=== PATIENT | male | born 1935 | race Caucasian/White ===

== ENCOUNTER → 2019-08-23 | Outpatient (CLI) | payer MEDICARE, MEDICAID ==
[~2019-08-23] MED LIST: AMINOPHYLLIN200 MG PO; ASPI-COR81 M1 PO; LOPRESSOR25 MG PO; MOBIC7.5 MG PO; PLAVIX75 M1 PO; PRINIVIL10 MG PO; PROAIR HFA8.5 GM INH; RESTORIL15 MG PO; ZITHROMAX250 MG PO; ZOCOR40 MG PO
[2019-08-23 07:52] LABS: BASO # 0.1 10*3/uL (0.0-0.1); BASO % 0.7 % (0.0-1.0); EOS # 0.2 10*3/uL (0.0-0.4); EOS % 3.1 % (1.0-4.0); HEMATOCRIT 50.1 % (42.0-52.0); HEMOGLOBIN 15.8 g/dl (14.0-18.0); LYMPH # 2.2 10*3/uL (1.3-4.4); LYMPH % 30.5 % (27.0-41.0); MEAN CELL VOLUME 100.2 fl (80.0-94.0); MEAN CORPUSCULAR HGB 31.6 pg (27.0-31.0); MEAN CORPUSCULAR HGB CONC 31.5 g/dl (33.0-37.0); MEAN PLATELET VOLUME 9.8 fl (9.6-12.3); MONO # 0.6 10*3/uL (0.1-1.0); MONO % 9.1 % (3.0-9.0); NEUT % 56.3 % (47.0-73.0); PLATELET COUNT AUTOMATED 205 10*3/uL (130-400); RED CELL DISTRI WIDTH 12.9 % (0-14.5)
== END | disposition home or self-care (01) ==
LOC: LAB 07:26
PROVIDERS: Orthopaedic Surgery
DX: M79.10 Myalgia, unspecified site (principal); E78.00 Pure hypercholesterolemia, unspecified

== ENCOUNTER → 2019-08-27 | Outpatient (CLI) | payer MEDICARE, MEDICAID | END | disposition home or self-care (01) | LOC: CT 11:22 → MRI 14:00 | DX: M47.892 Other spondylosis, cervical region (principal); I10 Essential (primary) hypertension ==

== ENCOUNTER → 2019-09-17 | Outpatient (CLI) | payer MEDICARE, MEDICAID ==
[2019-09-18 08:08] LABS: RHEUMATOID ARTHRITIS FACTOR <10.0 IU/mL (0.0-13.9)
[2019-09-18 09:09] LABS: HEPATITIS B SURFACE AG Negative (Negative); HEPATITIS C VIRUS ANTIBODY <0.1 s/co (0.0-0.9)
[2019-09-19 11:06] LABS: LUPUS DRVVT 38.5 sec (0.0-47.0); PTT-LA 31.1 sec (0.0-51.9)
[2019-09-19 12:08] LABS: LUPUS REFLEX INTERPRETATION Comment: (.)
[2019-09-19 17:10] LABS: CCP ANTIBODIES IGG/IGA 9 units (0-19)
[2019-09-20 12:07] LABS: ANTI-RNP ANTIBODIES 0.7 AI (0.0-0.9)
== END | disposition home or self-care (01) ==
LOC: LAB 11:16
PROVIDERS: Orthopaedic Surgery
DX: M54.2 Cervicalgia (principal)

== ENCOUNTER → 2021-11-14 | Outpatient (CLI) | payer MEDICARE, MEDICAID ==
[2021-11-14 10:25] LABS: BASO % 0.5 % (0.0-1.0); EOS # 0.1 10*3/uL (0.0-0.4); EOS % 1.6 % (1.0-4.0); HEMATOCRIT 49.1 % (42.0-52.0); LYMPH # 1.9 10*3/uL (1.3-4.4); MEAN CELL VOLUME 97.4 fl (80.0-94.0); MEAN CORPUSCULAR HGB 31.2 pg (27.0-31.0); MEAN PLATELET VOLUME 9.9 fl (9.6-12.3); MONO # 0.6 10*3/uL (0.1-1.0); MONO % 7.5 % (3.0-9.0); NEUT # 5.4 10*3/uL (2.3-7.9); NEUT % 67.2 % (47.0-73.0); PLATELET COUNT AUTOMATED 198 10*3/uL (130-400); RED BLOOD COUNT 5.04 10*6/uL (4.50-5.90); RED CELL DISTRI WIDTH 13.5 % (0-14.5)
[2021-11-14 10:31] LABS: BILIRUBIN Negative (Negative); BLOOD Negative (Negative); CLARITY Clear (Clear); COLOR Yellow (Yellow); GLUCOSE Negative (Negative); KETONE Negative (Negative); LEUKO ESTERASE 2+ (Negative); NITRITE Negative (Negative); PH 5.5 (4.5-8.0); UROBILINOGEN 0.2 E.U./dl (0.0-1.0)
[2021-11-14 10:38] LABS: ALBUMIN 4.2 gm/dl (3.1-4.5); CREATININE 1.4 mg/dL (0.70-1.30); TOTAL PROTEIN 7.6 gm/dL (6.4-8.2)
[2021-11-14 10:43] LABS: MUCOUS 2+; WBC 51-100 wbc/hpf (0-5)
== END | disposition home or self-care (01) ==
LOC: US 09:00 → LAB 09:27 → CT 10:00
PROVIDERS: ATTEND Urology
DX: Z12.5 Encounter for screening for malignant neoplasm of prostate (principal); J43.9 Emphysema, unspecified; C67.9 Malignant neoplasm of bladder, unspecified; D40.0 Neoplasm of uncertain behavior of prostate; N43.2 Other hydrocele; K40.20 Bilateral inguinal hernia, without obstruction or gangrene, not specified as recurrent; I10 Essential (primary) hypertension; R53.83 Other fatigue; N40.0 Benign prostatic hyperplasia without lower urinary tract symptoms

== ENCOUNTER 2022-01-21 18:11 | Emergency (ER) | payer MEDICARE, MEDICAID ==
[2022-01-21 19:03] LABS: HEMATOCRIT 48.3 % (42.0-52.0); MEAN CELL VOLUME 94.7 fl (80.0-94.0); MEAN CORPUSCULAR HGB CONC 32.7 g/dl (33.0-37.0); MEAN PLATELET VOLUME 9.5 fl (9.6-12.3); PLATELET COUNT AUTOMATED 197 10*3/uL (130-400); RED CELL DISTRI WIDTH 13.2 % (0-14.5); WHITE BLOOD COUNT 11.4 10*3/uL (4.8-10.8)
[2022-01-21 19:05] LABS: MANUAL DIFF REFLEX YES
[2022-01-21 19:20] LABS: CREATININE 1.38 mg/dL (0.70-1.30); POTASSIUM 4.6 mmol/L (3.5-5.1); TOTAL PROTEIN 7.1 gm/dL (6.4-8.2)
[2022-01-21 19:37] LABS: PLATELET SUFFICIENCY NORMAL (NORMAL); TOTAL CELLS COUNTED 100 #CELLS
[2022-01-21 19:39] LABS: BURR CELLS FEW; TARGET CELLS FEW
== END 2022-01-21 21:49 | disposition left against medical advice (07) ==
LOC: ED 18:11
PROVIDERS: Physician Assistant
DX: R10.9 Unspecified abdominal pain (principal); R11.2 Nausea with vomiting, unspecified; Z88.8 Allergy status to other drugs, medicaments and biological substances; Z79.899 Other long term (current) drug therapy; Z79.82 Long term (current) use of aspirin; Z87.891 Personal history of nicotine dependence

== ENCOUNTER 2022-04-09 11:02 | Emergency (ER) | payer MEDICARE, MEDICAID ==
[2022-04-09 11:57] LABS: BASO % 0.4 % (0.0-1.0); EOS % 0.4 % (1.0-4.0); HEMATOCRIT 46.2 % (42.0-52.0); LYMPH # 1.3 10*3/uL (1.3-4.4); LYMPH % 13.5 % (27.0-41.0); MEAN CELL VOLUME 96.7 fl (80.0-94.0); MEAN CORPUSCULAR HGB 31.2 pg (27.0-31.0); MEAN CORPUSCULAR HGB CONC 32.3 g/dl (33.0-37.0); MONO # 0.9 10*3/uL (0.1-1.0); MONO % 8.9 % (3.0-9.0); NEUT # 7.6 10*3/uL (2.3-7.9); NEUT % 76.6 % (47.0-73.0); PLATELET COUNT AUTOMATED 174 10*3/uL (130-400); RED BLOOD COUNT 4.78 10*6/uL (4.50-5.90); RED CELL DISTRI WIDTH 13.2 % (0-14.5); WHITE BLOOD COUNT 9.9 10*3/uL (4.8-10.8)
[2022-04-09 12:18] LABS: CREATININE 1.4 mg/dL (0.70-1.30); POTASSIUM 4.4 mmol/L (3.5-5.1); TOTAL PROTEIN 6.9 gm/dL (6.4-8.2)
[2022-04-09 14:55] LABS: BILIRUBIN Negative (Negative); BLOOD Negative (Negative); CLARITY Clear (Clear); COLOR Yellow (Yellow); GLUCOSE Negative (Negative); KETONE Trace (Negative); LEUKO ESTERASE 1+ (Negative); NITRITE Negative (Negative); PH 5.5 (4.5-8.0); UROBILINOGEN 0.2 E.U./dl (0.0-1.0)
[2022-04-09 15:03] LABS: BACTERIA 2+; HYALINE CAST 0-2; WBC 21-30 wbc/hpf (0-5)
[2022-04-09 15:04] LABS: EPITHELIAL CELLS 0-2
[2022-04-09] MEDS ORDERED: CIPRO500 MG PO (16:14)
[2022-04-09] MEDS ORDERED: METRONIDAZOLE500 M1 PO (16:14)
== END 2022-04-09 16:22 | disposition home or self-care (01) ==
LOC: ED 11:02
PROVIDERS: Physician Assistant
DX: K52.9 Noninfective gastroenteritis and colitis, unspecified (principal); Z88.8 Allergy status to other drugs, medicaments and biological substances; Z79.899 Other long term (current) drug therapy; Z79.82 Long term (current) use of aspirin; Z87.891 Personal history of nicotine dependence

== ENCOUNTER 2022-09-27 16:43 | Emergency (ER) | payer MEDICARE, MEDICAID ==
[~2022-09-27] VITALS: Wt 57.6 kg
[~2022-09-27 16:43] MED LIST changes: +CIPRO500 MG PO; +METRONIDAZOLE500 M1 PO
[2022-09-27 17:44] LABS: BASO % 0.5 % (0.0-1.0); EOS % 0.2 % (1.0-4.0); HEMATOCRIT 43.4 % (42.0-52.0); LYMPH # 1.1 10*3/uL (1.3-4.4); LYMPH % 13.7 % (27.0-41.0); MEAN CELL VOLUME 93.9 fl (80.0-94.0); MEAN CORPUSCULAR HGB 31.4 pg (27.0-31.0); MEAN CORPUSCULAR HGB CONC 33.4 g/dl (33.0-37.0); MONO % 12.1 % (3.0-9.0); NEUT % 73.1 % (47.0-73.0); PLATELET COUNT AUTOMATED 169 10*3/uL (130-400); RED BLOOD COUNT 4.62 10*6/uL (4.50-5.90); RED CELL DISTRI WIDTH 13.6 % (0-14.5); WHITE BLOOD COUNT 8.2 10*3/uL (4.8-10.8)
[2022-09-27 17:58] LABS: ACT PARTIAL THROMBO TIME 28.2 SECONDS (20.0-32.1)
[2022-09-27 18:17] LABS: ALKALINE PHOSPHATASE 60 U/L (46-116); BUN 25 mg/dl (9-23); CHLORIDE 102 mmol/L (98-107); CREATININE 1.32 mg/dL (0.70-1.30); LIPASE 61 U/L (12-53); POTASSIUM 4.4 mmol/L (3.4-5.1); SODIUM 136 mmol/L (136-145)
[2022-09-27 18:21] LABS: BILIRUBIN Negative (Negative); BLOOD Trace-Lysed (Negative); CLARITY Clear (Clear); COLOR Yellow (Yellow); GLUCOSE Negative (Negative); KETONE Negative (Negative); LEUKO ESTERASE Negative (Negative); NITRITE Negative (Negative); PH 5.5 (4.5-8.0); UROBILINOGEN 0.2 E.U./dl (0.0-1.0)
[2022-09-27 18:40] LABS: SGPT/ALT 15 U/L (12-78)
[2022-09-27 19:19] LABS: BACTERIA TRACE; EPITHELIAL CELLS 0-2
== END 2022-09-27 21:19 | disposition home or self-care (01) ==
LOC: ED 16:43
PROVIDERS: Family Medicine
DX: U07.1 COVID-19 (principal); Z88.1 Allergy status to other antibiotic agents; Z90.49 Acquired absence of other specified parts of digestive tract; Z98.890 Other specified postprocedural states; Z87.891 Personal history of nicotine dependence; A41.9 Sepsis, unspecified organism; R77.8 Other specified abnormalities of plasma proteins; N18.9 Chronic kidney disease, unspecified

== ENCOUNTER 2024-04-12 07:50 | Emergency (ER) | payer MEDICARE, MEDICAID ==
[~2024-04-12] VITALS: Ht 167.6 cm; Wt 54.9 kg
[~2024-04-12 07:50] MED LIST changes: +ATORVASTATIN CA40 M1 PO; +DOXYCYCLINE HY100 M3 PO; +FUROSEMIDE40 MG PO; +METOPROLOL SUCC50 M1 PO; +OXYGEN NAS; +TRAZODONE50 MG PO; +XARE15TA PO
[2024-04-12] MEDS ORDERED: IMDUR SA30 MG PO (08:18)
[2024-04-12] MEDS ORDERED: VALTREX1000 MG PO (09:01)
== END 2024-04-12 09:15 | disposition home or self-care (01) ==
LOC: ED 07:50
DX: B02.31 Zoster conjunctivitis (principal); I25.2 Old myocardial infarction; Z88.8 Allergy status to other drugs, medicaments and biological substances; Z79.899 Other long term (current) drug therapy; Z79.82 Long term (current) use of aspirin; Z98.890 Other specified postprocedural states; Z98.61 Coronary angioplasty status; Z87.891 Personal history of nicotine dependence